=== PATIENT | male | born 1945 | race Caucasian/White ===

== ENCOUNTER 2020-03-09 20:23 | Inpatient (IN) | payer OTHER ==
[~2020-03-09] VITALS: Ht 170.2 cm; Wt 75.7 kg
--- NOTE | ~2020-03-09 | PROC ---
[address] [address] PROCEDURE REPORT Name: VAISHNAVI ERICKSON Room: [address] IN M.R.#: [id number] Admission: 03/09/20 Attend Phys: Vaishnavi Riley MD Discharge: 03/11/20 Date of : 49 Report #: [id number] THIS REPORT FOR: cc: Traci Cameron MD, Tuongvan T. MD ~ [facility],Medical Records Staff For GI report, please see the Provation report in Perceptive 7 content. By: 1316Medical Records Staff [facility] /JENSEN
[~2020-03-09 20:23] MED LIST: BACTRIM DS TAB1 EACH PO; CIPROFLOXACIN500 M1 PO; FLOMAX0.4 MG PO; NOHOMEMEDICATIONS; NORCO 5-325 TA1 EAC1 PO; NORCO 5-325 TA1 EACH PO; PROSCAR 5MG TABL5 MG PO; PYRIDIUM200 M2 PO; VISTARIL 25 MG25 M1 PO
[2020-03-09 20:36] VITALS: BP 149/93
[2020-03-09 20:56] LABS: ABSOLUTE BASOPHILS 0.1 thou/uL (0.0-0.2); ABSOLUTE EOSINOPHILS 0.1 thou/uL (0.0-0.7); ABSOLUTE LYMPHOCYTES 1.6 thou/uL (0.8-5.3); ABSOLUTE MONOCYTES 0.6 thou/uL (0.0-1.2); ABSOLUTE NEUTROPHILS 8.2 thou/uL (1.6-8.1); BASOPHILS 0.8 %; EOSINOPHILS 0.8 %; HEMATOCRIT 38.8 % (42.0-52.0); HEMOGLOBIN 12.6 gm/dL (14.0-18.0); LYMPHOCYTES 15.4 %; MCH 28.5 pg (26.0-34.0); MCHC 32.5 g/dL (28.0-37.0); MCV 87.5 fL (80.0-100.0); MPV 7.2 fl. (7.2-11.1); NUCLEATED RBCS 0 /100WBC; PLATELET COUNT* 305 thou/uL (150-400); RBC 4.43 mil/uL (4.50-6.00); RDW-CV 14.2 % (10.5-14.5); WBC 10.7 thou/uL (4.0-11.0)
[2020-03-09 21:05] LABS: CALCIUM 8.7 mg/dL (8.5-10.1); CREATININE 1.8 mg/dL (0.6-1.3); POTASSIUM 5.7 mmol/L (3.5-5.1)
[2020-03-09 21:07] LABS: PROTIME 10.7 Seconds (9.20-11.50)
[2020-03-09 21:20] LABS: ALBUMIN 3.7 g/dL (3.4-5.0); MAGNESIUM 2.3 mg/dL (1.8-2.4); TOTAL BILIRUBIN 0.2 mg/dL (<0.1-1.0); TOTAL PROTEIN 6.7 g/dL (6.4-8.2)
[2020-03-10] VITALS (7 sets, daily range): BP systolic 113–128; BP diastolic 53–77
[2020-03-10 08:39] LABS: HEMATOCRIT 33.3 % (42.0-52.0); HEMOGLOBIN 10.9 gm/dL (14.0-18.0)
[2020-03-10 08:58] LABS: CALCIUM 8.2 mg/dL (8.5-10.1); CREATININE 1.6 mg/dL (0.6-1.3); MAGNESIUM 2.1 mg/dL (1.8-2.4); POTASSIUM 4.8 mmol/L (3.5-5.1)
[2020-03-10] MEDS ORDERED: ASA81BEC PO (11:14)
--- NOTE | 2020-03-10 11:20 | EKG ---
[place] [address] ELECTROCARDIOGRAM REPORT Name: VAISHNAVI ERICKSON Room: [address] ADM IN [facility]#: [id number] Admission: 03/09/20 Attend Phys: Vaishnavi Riley, Discharge: Date of : 49 Date of Service: 03/09/202236 Report #: [id number] THIS REPORT FOR: //name// [facility] ED Test Date: 2020-03-09 Test Time: 22:37:15 Pat Name: VAISHNAVI ERICKSON Department: Room: [facility] Gender: M Medical Office Scheduler: : 1945 Requested By: Lynne Lake Order Number: [id number] MD: Ad James Measurements Intervals [place] Rate: 82 P: 76 TN: 186 QRS: 43 QRSD: 77 T: 49 QT: 328 QTc: 383 Interpretive Statements Sinus rhythm Minimal ST elevation, anterior leads No previous ECG available for comparison Electronically Signed On 03-10-2020 11:20:02 [employer] by Ad James [email or web address] <ELECTRONICALLY SIGNED> By: Ad James MD, [facility] 01/0 36 36 Ad James MD, FAC /EPI
[2020-03-11] VITALS: BP 91/51
[2020-03-11 04:00] VITALS: BP 113/60
[2020-03-11 08:47] VITALS: BP 133/54
[2020-03-11 09:39] VITALS: BP 133/54
--- NOTE | 2020-03-14 18:06 | PATH ---
[address] [address] PATHOLOGY RPT PROCEDURE Name: VAISHNAVI ERICKSON Room: [address] IN ..#: [id number] Admission: 03/09/20 Date of : 49 Discharge: 03/11/20 Report #: [id number] Path Case #: [id number] [facility] Accession Number: [id number] . 01 Material submitted: . PART A: gastrointestinal site - GASTRIC BIOPSY PART B: anastomosis - ANASTOMOTIC ULCER PART C: sigmoid colon - SIGMOID COLON POLYP . 01 Clinician provided ICD-10: K92.2 . 01 Clinical history: . GASTROINTESTINAL HEMORRHAGE . 02 Diagnosis: A. Gastric biopsy: - Mild nonspecific chronic gastritis, negative for Helicobacter pylori organisms and dysplasia. . B. Anastomotic ulcer: - Benign bowel mucosa with nonspecific ulceration, negative for granulomas, viral inclusions and dysplasia. See comment. . C. Sigmoid colon polyp: - Tubular adenoma, negative for high-grade dysplasia. (TRAVIS:pit 03/14/2020) QTP 03/14/2020 1334 Local . 02 Comment: The bowel mucosa in specimen B appears to predominantly represent small intestinal mucosa and a minute fragment of possible colonic mucosa which could also represent regenerating small intestinal mucosa is also present. . Review of Dr. Campbell's procedure report dated 03/10/2020 reveals the patient to have had a prior right hemicolectomy with a single ulcer seen at the ileal surgical anastomosis. (TRAVIS:pit 03/14/2020) . Special stain on A: H. pylori immuno . 02 Electronically signed: . Jamir Swanson MD, Pathologist NPI- [id number] . 01 Gross description: . A. Received in formalin labeled "Vaishnavi Erickson, gastric biopsy" are two kebede-brown soft tissue fragments measuring in aggregate 1.0 x 0.5 x 0[place]1 [place] [address] PATHOLOGY RPT PROCEDURE Name: VAISHNAVI ERICKSON Room: [address]#: [id number] Admission: 03/09/20 Date of : 49 Discharge: 03/11/20 Report #: [id number] Path Case #: [id number] The specimen is submitted entirely in A1. . B. Received in formalin labeled "Vaishnavi Erickson, anastomotic ulcer" are multiple kebede-brown soft tissue fragments measuring in aggregate 0.5 x 0.4 x 0.1 cm. The specimen is submitted entirely in B1. . C. Received in formalin labeled "Vaishnavi Erickson, sigmoid colon polyp" is a fragment of kebede-brown soft tissue measuring 0.8 x 0.5 x 0.2 cm. The specimen is submitted entirely in C1. ([facility] [place]; 03/12/2020) [facility] 03/12/2020 1151 Local . 02 Pathologist provided ICD-10: K29.50, K28.9, D12.5 . 02 CPT . 631008, 631767, 658534, C91210 Specimen Comment: A courtesy copy of this report has been sent to [phone] Specimen Comment: Report sent to Performed at: [address], [place] [id number] MD Artem Holder MD Phone: [phone] Performed at: 02 [facility] [address], [place], [place] [id number] MD Jamir Swanson MD Phone: [phone]
== END 2020-03-11 10:11 | disposition home or self-care (01) | DRG 378 ==
LOC: M.ERS 20:23 → M.2W 21:42 → M.TBA-ER 21:42 → M.2W 03-10 09:16
PROVIDERS: Emergency Medicine; ADMIT Internal Medicine; ATTEND Internal Medicine
PROC: 0DBN8ZZ Excision of Sigmoid Colon, Via Natural or Artificial Opening Endoscopic (ICD-10-PCS; principal; 2020-03-10)
PROC: 0DB68ZX Excision of Stomach, Via Natural or Artificial Opening Endoscopic, Diagnostic (ICD-10-PCS; principal; 2020-03-10)
PROC: 0DBB8ZX Excision of Ileum, Via Natural or Artificial Opening Endoscopic, Diagnostic (ICD-10-PCS; principal; 2020-03-10)
DX: K28.4 Chronic or unspecified gastrojejunal ulcer with hemorrhage (principal); D62 Acute posthemorrhagic anemia; K57.31 Diverticulosis of large intestine without perforation or abscess with bleeding; K59.00 Constipation, unspecified; N41.9 Inflammatory disease of prostate, unspecified; N18.30 Chronic kidney disease, stage 3 unspecified; E87.5 Hyperkalemia; K31.9 Disease of stomach and duodenum, unspecified; K63.5 Polyp of colon; Z20.822 Contact with and (suspected) exposure to COVID-19; Z88.0 Allergy status to penicillin; Z85.038 Personal history of other malignant neoplasm of large intestine; Z90.49 Acquired absence of other specified parts of digestive tract; Z79.1 Long term (current) use of non-steroidal anti-inflammatories (NSAID); Z79.899 Other long term (current) drug therapy